=== PATIENT | male | born 1975 | race Caucasian/White ===

== ENCOUNTER 2020-04-18 17:01 | Emergency (ER) | payer OTHER ==
[2020-04-18 17:15] VITALS: BP 149/87; PULSE 109; O2SAT 95
== END 2020-04-18 17:19 | disposition left against medical advice (07) ==
LOC: ED 17:01
DX: R07.9 Chest pain, unspecified (principal)
CPT/HCPCS: 99283; G0463

== ENCOUNTER 2022-05-07 14:08 | Emergency (ER) | payer OTHER ==
[2022-05-07] MEDS ORDERED: Adacel Vial IM ONE ×2 (14:30→14:33)
[2022-05-07 14:31] VITALS: O2SAT 99
[2022-05-07] MEDS ORDERED: XYLOCAINE 2% HCL 20 ML MDV IJ ONE (14:31)
[2022-05-07] MEDS ORDERED: XYLOCAINE 2% HCL 20 ML MDV ONE (14:33)
--- NOTE | 2022-05-07 14:39 | ERPHSYRPT ---
- History of Present Illness Time Seen by Provider: 05/07/22 14:30 Source: patient Exam Limitations: no limitations Patient Subjective Stated Complaint: C/O lacerations to bottom of right foot that happened out in his yard just prior to arrival to ED. 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 Triage Nursing Assessment: Patient arrived in ED by ambulance. He is alert and oriented; very talkative. Patient having a hard time sitting still during assessment. No SOB noted. Right foot wrapped with gauze wrap upon arrival. Gauze removed and noted to have 2 small lacerations to the bottom of his foot. Physician History: Patient is a 47-year-old male presents to our ED via EMS for evaluation of a foot laceration. Patient states he was walking outdoors barefoot. 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 Injury occurred just prior to arrival. Tetanus not up-to-date. No active bleeding. Symptoms are mild to moderate in intensity. Patient declined pain medication. Pain worse with palpation. Pain improved with rest. Patient denies foreign body sensation in foot. Patient voices no other complaints or concerns at this time. Timing/Duration: today Severity: mild Modifying Factors: Improves With: nothing Associated Symptoms: denies symptoms Allergies/Adverse Reactions: No Known Drug Allergies Allergy (Verified 05/07/22 14:19) Home Medications: No Reportable Medications [No Reported Medications] 06/14/15 [History] Hx Tetanus, Diphtheria Vaccination/Date Given: No (NOT SURE) Hx Influenza Vaccination/Date Given: No Hx Pneumococcal Vaccination/Date Given: No Immunizations Up to Date: Yes Travel Risk - International Travel Have you traveled outside of the country in past 3 weeks: No - Coronavirus Screening Are you exhibiting any of the following symptoms?: No Close contact with a COVID-19 positive Pt in past 14-21 Days: No - Vaccine Status Have you recieved a Covid-19 vaccination: Yes 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 - Vaccination Dates Date of 2cond Vaccination (if applicable): NO - Review of Systems Constitutional: No Symptoms, No Fever, No Chills Eyes: No Symptoms Ears, Nose, & Throat: No Symptoms Respiratory: No Symptoms, No Cough, No Dyspnea Cardiac: No Symptoms, No Chest Pain, No Edema, No Syncope Abdominal/Gastrointestinal: No Symptoms, No Abdominal Pain, No Nausea, No Vomiting, No Diarrhea Genitourinary Symptoms: No Symptoms, No Dysuria Musculoskeletal: No Symptoms, No Back Pain, No Neck Pain Skin: No Symptoms, No Rash Neurological: No Symptoms, No Dizziness, No Focal Weakness, No Sensory Changes Psychological: No Symptoms Endocrine: No Symptoms Hematologic/Lymphatic: No Symptoms Immunological/Allergic: No Symptoms All Other Systems: Reviewed and Negative - Past Medical History Pertinent Past Medical History: No Neurological History: No Pertinent History ENT History: No Pertinent History Cardiac History: No Pertinent History Respiratory History: No Pertinent History Endocrine Medical History: No Pertinent History Musculoskeletal History: No Pertinent History GI Medical History: No Pertinent History History: No Pertinent History Psycho-Social History: No Pertinent History Male Reproductive Disorders: No Pertinent History Other Medical History: pt sleeping after medicine given in ER, unable to answer questions. - Past Surgical History Past Surgical History: No Neuro Surgical History: No Pertinent History Cardiac: No Pertinent History Respiratory: No Pertinent History Gastrointestinal: No Pertinent History Genitourinary: No Pertinent History Musculoskeletal: No Pertinent History Male Surgical History: No Pertinent History - Social History Smoking Status: Former smoker How long have you smoked: YRS Exposure to second hand smoke: Yes Drug Use: marijuana, methamphetamines, other Patient Lives Alone: No - Nursing Vital Signs Nursing Vital Signs: Initial Vital Signs Temperature 98.4 F 05/07/22 14:20 Pulse Rate 98 H 05/07/22 14:20 Respiratory Rate 19 05/07/22 14:20 Blood Pressure 160/116 05/07/22 14:20 O2 Sat by Pulse Oximetry 99 05/07/22 14:20 Pain Scale Pain Intensity 4 - Physical Exam General Appearance: no apparent distress, alert Eye Exam: PERRL/EOMI, eyes nml inspection Ears, Nose, Throat Exam: normal ENT inspection, TMs normal, pharynx normal, moist mucous membranes Neck Exam: normal inspection, non-tender, supple, full range of motion Respiratory Exam: normal breath sounds, lungs clear, airway intact, No respiratory distress Cardiovascular Exam: regular rate/rhythm, normal heart sounds, normal peripheral pulses Gastrointestinal/Abdomen Exam: soft, normal bowel sounds, No tenderness, No mass Back Exam: normal inspection, normal range of motion, No CVA tenderness, No vertebral tenderness Extremity Exam: normal inspection, normal range of motion, pelvis stable Neurologic Exam: alert, oriented x 3, cooperative, normal mood/affect, nml cerebellar function, nml station & gait, sensation nml, No motor deficits Skin Exam: normal color, warm, dry, No rash Lymphatic Exam: No adenopathy SpO2 Interpretation: normal SpO2: 99 O2 Delivery: Room Air - Course Nursing assessment & vital signs reviewed: Yes - Radiology Exams Foot X-ray Interpretation: Teleradiologist Report (Laceration lateral border right foot. No fracture dislocations.) Ordered Tests: Active Orders 24 hr Category Date Time Status FOOT (MINIMUM 3 VIEWS) Stat Exams 05/07/22 14:25 Completed Medication Summary Discontinued Medications Generic Name Dose Route Start Last Admin Trade Name Freq PRN Reason Stop Dose Admin Diphtheria/Tetanus/Acell Pertussis 0.5 ml 05/07/22 14:30 05/07/22 14:40 Tdap --Diph,Pertuss(Acell),Tet Vac/Pf 0.5 Ml Vial IM 05/07/22 14:31 0.5 ml .ONCE ONE Administration Diphtheria/Tetanus/Acell Pertussis Confirm 05/07/22 14:33 Tdap --Diph,Pertuss(Acell),Tet Vac/Pf 0.5 Ml Vial Administered 05/07/22 14:34 Dose 0.5 ml IM .STK-MED ONE Lidocaine HCl 5 ml 05/07/22 14:31 Lidocaine Hcl 2% 20 Ml Mdv IJ 05/07/22 14:32 STAT ONE Lidocaine HCl Confirm 05/07/22 14:33 Lidocaine Hcl 2% 20 Ml Mdv Administered 05/07/22 14:34 Dose 5 ml .ROUTE .STK-MED ONE - Progress Progress: improved Progress Note: Patient reassessed. Patient now stating that he feels he may have glass retained in his foot. We contacted Dr. Leigh of podiatry. Dr. Leigh will see patient now in his office. We will not close the wound at this time. Dr. Leigh will probe the wound for retained foreign body and manage the wound accordingly. Tetanus updated. Portions of this note were created with voice recognition technology. There may be grammatical, spelling, punctuation or sound alike errors 05/07/22 15:07 Counseled pt/family regarding: diagnosis, need for follow-up, rad results - Departure Departure Disposition: Home Clinical Impression: Foot laceration Condition: Stable Critical Care Time: No Referrals: TAMIKO CELESTE [NON-STAFF PHY W/O PRIVILEGES] - Follow up/PCP as directed Additional Instructions: Discharge/Care Plan [address] ANNABEL was seen on 05/07/22 in the Emergency Room. The patient was counseled regarding Diagnosis,Lab results, Imaging studies, need for follow up and when to return to the Emergency Room. Prescriptions given: Discharge Note I have spoken with the patient and/or caregivers. I have explained the patient's condition, diagnosis and treatment plan based on the information available to me at this time. I have answered the patient's and/or caregiver's questions and addressed any concerns. The patient and/or caregivers have as good understanding of the patient's diagnosis, condition and treatment plan as can be expected at this point. The vital signs have been stable. The patient's condition is stable and appropriate for discharge from the emergency department. The patient will pursue further outpatient evaluation with the primary care physician or other designated or consulting physician as outlined in the discharge instructions. The patient and/or caregivers are agreeable to this plan of care and follow-up instructions have been explained in detail. The patient and/or caregivers have received these instruction. The patient/and or caregivers are aware that any significant change in condition or worsening of symptoms should prompt an immediate return to this or the closest emergency department or call 911.
--- NOTE | 2022-05-07 14:47 | XRAY ---
Indication: Laceration laterally. Comparison: None 3 nonweightbearing views right foot demonstrates laceration lateral to 5th metatarsal. No other bony, articular, or soft tissue abnormalities.
[2022-05-07 15:11] VITALS: PULSE 89
[2022-05-07 15:15] VITALS: BP 130/84
== END 2022-05-07 15:15 | disposition home or self-care (01) ==
LOC: ED 14:08
DX: S91.311A Laceration without foreign body, right foot, initial encounter (principal); W22.8XXA Striking against or struck by other objects, initial encounter; W25.XXXA Contact with sharp glass, initial encounter
CPT/HCPCS: 73630; 90471; 90715; 96372; 99283

== ENCOUNTER 2022-07-10 22:47 | Emergency (ER) | payer OTHER ==
[2022-07-10 22:59] VITALS: O2SAT 95
[2022-07-10] MEDS ORDERED: TORAdol 30 mg Injection IV ONE (23:00)
[2022-07-10] MEDS ORDERED: Sodium Chloride 0.9% 1000 ML 1,000 ML IV STA (23:02)
[2022-07-10] MEDS ORDERED: TORAdol 30 mg Injection ONE (23:03)
[2022-07-10] MEDS ORDERED: Sodium Chloride 0.9% 1000 ML 1,000 ML ONE (23:03)
[2022-07-10 23:11] LABS: Appearance TURBID (CLEAR); Bilirubin MODERATE (NEGATIVE); Dipstick done @ ? MAIN LAB; Glucose NEGATIVE (NEGATIVE); Ketones TRACE (NEGATIVE); Nitrite NEGATIVE (NEGATIVE); Ph 5.5 (5-6); Protein,Urine Dip >=300 (Negative); RBC LARGE Ery/ul (0-5); Specific Gravity >=1.030 (1.005-1.025); Urobilinogen 1 mg/dL (0-1)
[2022-07-10 23:13] LABS: Absolute Neutrophil Ct (ANC) 5.68 x10^3/uL (1.4-6.9); Basophil (Absolute #) 0.12 x10^3/uL (0-0.4); Eosinophil (Absolute #) 0.19 x10^3/uL (0-0.5); Hematocrit 44.2 % (42-50); Hemoglobin 14.7 g/dL (12.5-18.0); Lymphocyte (Absolute #) 2.95 x10^3/uL (1.0-4.6); Lymphocytes % 30.3 % (24.0-44.0); Mean Cell Volume 99.1 fL (78-100); Mean Corpuscular Hgb Concent. 33.3 g/dL (32-36); Mean Platelet Volume 10.1 fL (7.5-11.0); Monocyte (Absolute #) 0.75 x10^3/uL (0.0-1.3); Monocytes % 7.7 % (0.0-12.0); Neutrophil % 58.5 % (36.0-66.0); Platelet Count 195 x10^3/uL (150-450); Red Blood Count 4.46 x10^6/uL (4.1-5.6); Red Cell Distribution Width 12.8 % (11.5-14.0); White Blood Count 9.7 x10^3/uL (4.0-10.5)
--- NOTE | 2022-07-10 23:13 | ERPHSYRPT ---
- History of Present Illness Historian: patient Exam Limitations: no limitations Patient Subjective Stated Complaint: pt states he has been having pain for 2 hours that started in l side of low abdomen, states it hurts when he urinates. pt states no history of stones. rates pain 10/10 Triage Nursing Assessment: pt is alert nd oriented, walked to room holding abdomen, urine is dark red and has no sedement. pt states he felt a bit better after urinating. refuses to sit in bed due to pain in l abdomen that is reffered to back and side. Physician History: 47 yo wm w L CVA pain w radiation to LLQ x2 hrs. Pain is 10 on scale and described as pressure. He has nausea/hematuria wo dysuria/frequency/fever. Timing/Duration: other (2 hours) Activities at Onset: rest Quality: pressure Abdominal Pain Onset Location: other (L CVA w radiation to LLQ) Pain Radiation: LLQ Severity of Pain-Max: severe Severity of Pain-Current: severe Modifying Factors: Improves With: nothing Associated Symptoms: denies symptoms, back Previous symptoms: no prior history Allergies/Adverse Reactions: No Known Drug Allergies Allergy (Verified 05/07/22 14:19) Home Medications: No Reportable Medications [No Reported Medications] 06/14/15 [History] Hx Tetanus, Diphtheria Vaccination/Date Given: No (NOT SURE) Hx Influenza Vaccination/Date Given: No Hx Pneumococcal Vaccination/Date Given: No Travel Risk - International Travel Have you traveled outside of the country in past 3 weeks: No - Coronavirus Screening Are you exhibiting any of the following symptoms?: No Close contact with a COVID-19 positive Pt in past 14-21 Days: No - Vaccine Status Have you recieved a Covid-19 vaccination: Yes 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 - Vaccination Dates Date of 2cond Vaccination (if applicable): unknown - Review of Systems Constitutional: No Symptoms Eyes: No Symptoms Ears, Nose, & Throat: No Symptoms Respiratory: No Symptoms Cardiac: No Symptoms Abdominal/Gastrointestinal: No Symptoms Genitourinary Symptoms: No Symptoms, Hematuria, Flank Pain Musculoskeletal: No Symptoms Skin: No Symptoms Neurological: No Symptoms Psychological: No Symptoms Endocrine: No Symptoms Hematologic/Lymphatic: No Symptoms Immunological/Allergic: No Symptoms - Past Medical History Pertinent Past Medical History: No Neurological History: No Pertinent History ENT History: No Pertinent History Cardiac History: No Pertinent History Respiratory History: No Pertinent History Endocrine Medical History: No Pertinent History Musculoskeletal History: No Pertinent History GI Medical History: No Pertinent History History: No Pertinent History Psycho-Social History: No Pertinent History Male Reproductive Disorders: No Pertinent History Other Medical History: pt sleeping after medicine given in ER, unable to answer questions. - Past Surgical History Past Surgical History: No Neuro Surgical History: No Pertinent History Cardiac: No Pertinent History Respiratory: No Pertinent History Gastrointestinal: No Pertinent History Genitourinary: No Pertinent History Musculoskeletal: No Pertinent History Male Surgical History: No Pertinent History - Social History Smoking Status: Former smoker How long have you smoked: YRS Exposure to second hand smoke: Yes Drug Use: bath salts, other Patient Lives Alone: No Significant Family History: no pertinent family hx - Nursing Vital Signs Nursing Vital Signs: Initial Vital Signs Temperature 98.7 F 07/10/22 22:50 Pulse Rate 81 07/10/22 22:50 Respiratory Rate 18 07/10/22 22:50 Blood Pressure 147/96 07/10/22 22:50 O2 Sat by Pulse Oximetry 95 07/10/22 22:50 Pain Scale Pain Intensity 4 Hypertensive - Physical Exam General Appearance: no apparent distress (In pain) Eye Exam: PERRL/EOMI, eyes nml inspection Ears, Nose, Throat Exam: normal ENT inspection, TMs normal, pharynx normal, moist mucous membranes Neck Exam: normal inspection, non-tender, supple, full range of motion, No meningismus, No mass, No Brudzinski, No Kernig's, No carotid bruit Respiratory Exam: normal breath sounds, lungs clear, airway intact, No respiratory distress Cardiovascular Exam: regular rate/rhythm, normal heart sounds, normal peripheral pulses, capillary refill <2 sec, No murmur Gastrointestinal/Abdomen Exam: soft, normal bowel sounds, No tenderness Back Exam: normal inspection, normal range of motion, CVA tenderness (Mild L CVA ttp) Extremity Exam: normal inspection, normal range of motion Neurologic Exam: alert, oriented x 3, cooperative, substation 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, normal mood/affect, nml cerebellar function, nml station & gait, sensation nml, No motor deficits, No sensory deficit Skin Exam: normal color, warm, dry, No rash Lymphatic Exam: No adenopathy SpO2 Interpretation: normal SpO2: 95 O2 Delivery: Room Air - Course Nursing assessment & vital signs reviewed: Yes - CT Exams Abdomen/Pelvis CT Interpretation: Tele-radiologist Report (2mm L distal ureteral stone) Ordered Tests: Medication Summary Discontinued Medications Generic Name Dose Route Start Last Admin Trade Name Nemo PRN Reason Stop Dose Admin Hydrocodone Bitart/Acetaminophen 2 tab 07/11/22 01:37 07/11/22 01:41 Hydrocodone/Apap 5/325 Mg Tablet PO 07/11/22 01:38 2 tab SENT HOME W/ PATIENT ONE Administration Hydrocodone Bitart/Acetaminophen Confirm 07/11/22 01:41 Hydrocodone/Apap 5/325 Mg Tablet Administered 07/11/22 01:42 Dose 2 tab .ROUTE .STK-MED ONE Sodium Chloride 1,000 mls @ 999 mls/hr 07/10/22 23:02 07/10/22 23:05 Sodium Chloride 0.9% 1000 Ml IV 07/11/22 00:02 999 mls/hr .Q1H1M STA Administration Sodium Chloride Confirm 07/10/22 23:03 Sodium Chloride 0.9% 1000 Ml Administered 07/10/22 23:04 Dose 1,000 mls @ ud .ROUTE .STK-MED ONE Ketorolac Tromethamine 15 mg 07/10/22 23:00 07/10/22 23:05 Ketorolac Tromethamine 30 Mg/Ml Inj IV 07/10/22 23:01 15 mg STAT ONE Administration Ketorolac Tromethamine Confirm 07/10/22 23:03 Ketorolac Tromethamine 30 Mg/Ml Inj Administered 07/10/22 23:04 Dose 30 mg .ROUTE .STK-MED ONE Ketorolac Tromethamine 15 mg 07/11/22 01:04 07/11/22 01:16 Ketorolac Tromethamine 30 Mg/Ml Inj IV 07/11/22 01:05 15 mg STAT ONE Administration Ketorolac Tromethamine Confirm 07/11/22 01:12 Ketorolac Tromethamine 30 Mg/Ml Inj Administered 07/11/22 01:13 Dose 30 mg .ROUTE .STK-MED ONE Lab/Rad Data: Laboratory Result Diagrams 07/10/22 23:10 07/10/22 23:10 Laboratory Results 07/10/22 07/10/22 07/10/22 Range/Units 23:10 23:10 23:01 WBC 9.7 (4.0-10.5) x10^3/uL RBC 4.46 (4.1-5.6) x10^6/uL Hgb 14.7 (12.5-18.0) g/dL Hct 44.2 (42-50) % MCV 99.1 (78-100) fL MCH 33.0 H (26-32) pg MCHC 33.3 (32-36) g/dL RDW 12.8 (11.5-14.0) % Plt Count 195 (150-450) x10^3/uL MPV 10.1 (7.5-11.0) fL Gran % 58.5 (36.0-66.0) % Immature Gran % (Auto) 0.3 (0.00-0.4) % Nucleat RBC Rel Count 0.0 (0.00-0.1) % Eos # (Auto) 0.19 (0-0.5) x10^3/uL Immature Gran # (Auto) 0.03 (0.00-0.03) x10^3u/L Absolute Lymphs (auto) 2.95 (1.0-4.6) x10^3/uL Absolute Monos (auto) 0.75 (0.0-1.3) x10^3/uL Absolute Nucleated RBC 0.00 (0.00-0.01) x10^3u/L Lymphocytes % 30.3 (24.0-44.0) % Monocytes % 7.7 (0.0-12.0) % Eosinophils % 2.0 (0.00-5.0) % Basophils % 1.2 (0.0-0.4) % Absolute Granulocytes 5.68 (1.4-6.9) x10^3/uL Basophils # 0.12 (0-0.4) x10^3/uL Sodium 139 (137-145) mmol/L Potassium 4.4 (3.5-5.1) mmol/L Chloride 105 (98-107) mmol/L Carbon Dioxide 25 (22-30) mmol/L Anion Gap 13.5 (5-15) MEQ/L BUN 25 H (9-20) mg/dL Creatinine 0.98 (0.66-1.25) mg/dL Estimated GFR > 60.0 ML/MIN Glucose 157 H (74-106) mg/dL Calcium 9.3 (8.4-10.2) mg/dL Total Bilirubin 0.70 (0.2-1.3) mg/dL AST 245 H (17-59) U/L ALT 166 H (0-50) U/L Alkaline Phosphatase 135 H (38-126) U/L Serum Total Protein 7.4 (6.3-8.2) g/dL Albumin 4.3 (3.5-5.0) g/dL Urinalys Dipstick Clnc Urine Color (YELLOW) Urine Appearance (CLEAR) Urine pH (5-6) Ur Specific [place] (1.005-1.025) POC Urine Protein Conf (Negative) Urine Ketones (NEGATIVE) Urine Nitrite (NEGATIVE) Urine Bilirubin (NEGATIVE) Urine Urobilinogen (0-1) mg/dL Urine Leukocytes (NEGATIVE) Urine WBC (Auto) (0-5) /HPF Urine RBC (Auto) (0-2) /HPF U Epithel Cells (Auto) (FEW) /HPF Urine Bacteria (Auto) (NEGATIVE) /HPF Urine RBC (0-5) Howie/ul Urine Mucus (Auto) (NEGATIVE) /HPF Ur Culture Indicated? Urine Glucose (NEGATIVE) mg/dL Urine Opiates Level NEGATIVE (NEGATIVE) Ur Methadone NEGATIVE (NEGATIVE) Urine Barbiturates NEGATIVE (NEGATIVE) Ur Phencyclidine (PCP) NEGATIVE (NEGATIVE) Urine Amphetamine NEGATIVE (NEGATIVE) U Benzodiazepine Level NEGATIVE (NEGATIVE) Urine Cocaine NEGATIVE (NEGATIVE) Urine Marijuana (THC) POSITIVE (NEGATIVE) 07/10/22 Range/Units 22:57 WBC (4.0-10.5) x10^3/uL RBC (4.1-5.6) x10^6/uL Hgb (12.5-18.0) g/dL Hct (42-50) % MCV (78-100) fL MCH (26-32) pg MCHC (32-36) g/dL RDW (11.5-14.0) % Plt Count (150-450) x10^3/uL MPV (7.5-11.0) fL Gran % (36.0-66.0) % Immature Gran % (Auto) (0.00-0.4) % Nucleat RBC Rel Count (0.00-0.1) % Eos # (Auto) (0-0.5) x10^3/uL Immature Gran # (Auto) (0.00-0.03) x10^3u/L Absolute Lymphs (auto) (1.0-4.6) x10^3/uL Absolute Monos (auto) (0.0-1.3) x10^3/uL Absolute Nucleated RBC (0.00-0.01) x10^3u/L Lymphocytes % (24.0-44.0) % Monocytes % (0.0-12.0) % Eosinophils % (0.00-5.0) % Basophils % (0.0-0.4) % Absolute Granulocytes (1.4-6.9) x10^3/uL Basophils # (0-0.4) x10^3/uL Sodium (137-145) mmol/L Potassium (3.5-5.1) mmol/L Chloride (98-107) mmol/L Carbon Dioxide (22-30) mmol/L Anion Gap (5-15) MEQ/L BUN (9-20) mg/dL Creatinine (0.66-1.25) mg/dL Estimated GFR ML/MIN Glucose (74-106) mg/dL Calcium (8.4-10.2) mg/dL Total Bilirubin (0.2-1.3) mg/dL AST (17-59) U/L ALT (0-50) U/L Alkaline Phosphatase (38-126) U/L Serum Total Protein (6.3-8.2) g/dL Albumin (3.5-5.0) g/dL Urinalys Dipstick Clnc MAIN LAB Urine Color BROWN (YELLOW) Urine Appearance TURBID (CLEAR) Urine pH 5.5 (5-6) Ur Specific [place] >=1.030 (1.005-1.025) POC Urine Protein Conf >=300 (Negative) Urine Ketones TRACE (NEGATIVE) Urine Nitrite NEGATIVE (NEGATIVE) Urine Bilirubin MODERATE (NEGATIVE) Urine Urobilinogen 1 (0-1) mg/dL Urine Leukocytes NEGATIVE (NEGATIVE) Urine WBC (Auto) 0-2 (0-5) /HPF Urine RBC (Auto) >101 (0-2) /HPF U Epithel Cells (Auto) NONE (FEW) /HPF Urine Bacteria (Auto) RARE (NEGATIVE) /HPF Urine RBC LARGE (0-5) Howie/ul Urine Mucus (Auto) SLIGHT (NEGATIVE) /HPF Ur Culture Indicated? 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
[2022-07-10 23:14] LABS: Bacteria RARE /HPF (NEGATIVE); Mucus SLIGHT /HPF (NEGATIVE); WBC 0-2 /HPF (0-5)
[2022-07-10 23:16] LABS: RBC >101 /HPF (0-2); Urine Cultured Indicated? YES
[2022-07-10 23:28] LABS: Amphetamine,Urine NEGATIVE (NEGATIVE); Barbiturate,Urine NEGATIVE (NEGATIVE); Benzodiazepine,Urine NEGATIVE (NEGATIVE); Cocaine,Urine NEGATIVE (NEGATIVE); Methadone,Urine NEGATIVE (NEGATIVE); Opiate,Urine NEGATIVE (NEGATIVE); PCP,Urine NEGATIVE (NEGATIVE); THC,Urine POSITIVE (NEGATIVE)
[2022-07-10 23:30] LABS: ALBUMIN 4.3 g/dL (3.5-5.0); ALKALINE PHOSPHATASE 135 U/L (38-126); ANION GAP 13.5 MEQ/L (5-15); BLOOD UREA NITROGEN 25 mg/dL (9-20); CHLORIDE 105 mmol/L (98-107); Calcium 9.3 mg/dL (8.4-10.2); Carbon Dioxide 25 mmol/L (22-30); Creatinine 1 0.98 mg/dL (0.66-1.25); EST GLOMERULAR FILTRATION RATE > 60.0 ML/MIN; Glucose 157 mg/dL (74-106); Potassium 4.4 mmol/L (3.5-5.1); SGOT/AST 245 U/L (17-59); SGPT/ALT 166 U/L (0-50); SODIUM 139 mmol/L (137-145); Total Protein 7.4 g/dL (6.3-8.2)
[2022-07-11] MEDS ORDERED: TORAdol 30 mg Injection IV ONE (01:04)
[2022-07-11] MEDS ORDERED: TORAdol 30 mg Injection ONE (01:12)
[2022-07-11 01:34] VITALS: BP 129/77; PULSE 77
[2022-07-11] MEDS ORDERED: NORCO 5/325 MG PO ONE (01:37)
[2022-07-11] MEDS ORDERED: NORCO 5/325 MG ONE (01:41)
--- NOTE | 2022-07-11 07:22 | XRAY ---
Indication: Hematuria. Left sided pain. Multiple contiguous axial images obtained through the abdomen and pelvis without contrast. Comparison: None Lung bases demonstrates minimal dependent atelectasis. Heart is not enlarged. Stomach is distended with food/fluid. Noncontrasted stomach and bowel loops appear nonobstructed. Appendix not visualized. Mild diffuse scattered colonic fecal debris throughout. Contracted gallbladder without gallstones. No free fluid/air. There is a 2-3 mm left UVJ calculus. Proximal left ureter is minimally prominent along with minimal hydronephrosis favoring partial obstructive uropathy. Additional left renal punctate calculus. Remaining liver, gallbladder, pancreas, spleen, adrenal glands, kidneys, ureters, and bladder are unremarkable for noncontrast exam. Very minimal aortoiliac calcifications without AAA. Osseous structures intact. Impression: 1. 2-3 mm distal left UVJ calculus producing partial obstruction. Additional left renal punctate calculus. 2. Incidental mild diffuse fecal stasis. Comment: Preliminary interpretation made by [facility]. No critical discrepancy.
== END 2022-07-11 01:49 | disposition home or self-care (01) ==
LOC: ED 22:47
DX: N20.1 Calculus of ureter (principal); R74.01 Elevation of levels of liver transaminase levels
CPT/HCPCS: 36000; 36415; 74176; 80053; 80307; 81015; 85025; 87086; 96374; 96376; 99284; J1885; A9270-GY

== ENCOUNTER 2023-10-30 18:27 | Emergency (ER) | payer OTHER ==
--- NOTE | 2023-10-30 18:38 | ERPHSYRPT ---
- History of Present Illness Time Seen by Provider: 10/30/23 18:38 Source: patient, family Exam Limitations: no limitations Physician History: pt has hx back pain after lifting 2 days ago and saw chiro with little relief - some left radicular symptoms. No neuro findings. NO motor weakness. no bowel or bladder symptoms, no hx cancer. no trauma. no spine tenderness. No abd pain or tenderness or mass. No urinary syptoms. No prior procedures and denies IV drug use recently ( last was in 2018), but is on subaxone for prior narc dependency. No fever. NO spinal injections. Discussed risks/benefits of outpt Tx as opposed to further studies in ER / Hosp and he prefers nonnarc Tx, steroids, and muscle relax and f/u PMD. Pt is advised that additional pathology could still be evolving undetected of a serious nature, and followup is important with furhter w/u to detect this and to return meantime if numbness weakness, bowel or bladder symptoms, fever or other concerns - he has the capacity to make this choice for outpt tx rather than further eval in ER today. Timing/Duration: day(s) Method of Injury: bending, lifting Quality: burning, dull, radiating, sharp Back Pain Location: lumbar spine Severity of Pain-Max: moderate Severity of Pain-Current: moderate Modifying Factors: Improves With: immobilization, movement Associated Symptoms: denies symptoms, other (left rad symptoms), No urinary incontinence, No loss of bowel control, No constipation, No problems urinating Previous symptoms: no prior history, recently seen, recently treated Allergies/Adverse Reactions: No Known Drug Allergies Allergy (Verified 10/30/23 18:36) Home Medications: Buprenorphine HCl/Naloxone HCl [Buprenorphine-Nalox 8-2 mg Tab] 1 ea DAILY 10/30/23 [History] Hx Tetanus, Diphtheria Vaccination/Date Given: No (NOT SURE) Hx Influenza Vaccination/Date Given: No Hx Pneumococcal Vaccination/Date Given: No Travel Risk - Vaccine Status Have you recieved a Covid-19 vaccination: Yes Side Boss: Moderna - Vaccination Dates Date of 2cond Vaccination (if applicable): unknown - Review of Systems Constitutional: No Fever, No Chills Eyes: No Symptoms Ears, Nose, & Throat: No Symptoms Respiratory: No Cough, No Dyspnea Cardiac: No Chest Pain, No Edema, No Syncope Abdominal/Gastrointestinal: No Abdominal Pain, No Nausea, No Vomiting, No Diarrhea Genitourinary Symptoms: No Dysuria Musculoskeletal: Back Pain, No Neck Pain Skin: No Rash Neurological: No Dizziness, No Focal Weakness, No Sensory Changes Psychological: No Symptoms Endocrine: No Symptoms Hematologic/Lymphatic: No Symptoms Immunological/Allergic: No Symptoms All Other Systems: Reviewed and Negative - Past Medical History Pertinent Past Medical History: No Neurological History: No Pertinent History ENT History: No Pertinent History Cardiac History: No Pertinent History Respiratory History: No Pertinent History Endocrine Medical History: No Pertinent History Musculoskeletal History: No Pertinent History GI Medical History: No Pertinent History History: No Pertinent History Psycho-Social History: No Pertinent History Male Reproductive Disorders: No Pertinent History Other Medical History: pt sleeping after medicine given in ER, unable to answer questions. - Past Surgical History Past Surgical History: No Neuro Surgical History: No Pertinent History Cardiac: No Pertinent History Respiratory: No Pertinent History Gastrointestinal: No Pertinent History Genitourinary: No Pertinent History Musculoskeletal: No Pertinent History Male Surgical History: No Pertinent History - Social History Smoking Status: Former smoker How long have you smoked: YRS Exposure to second hand smoke: Yes Drug Use: bath salts, other Patient Lives Alone: No Significant Family History: no pertinent family hx - Nursing Vital Signs Nursing Vital Signs: Initial Vital Signs Temperature 97.5 F 10/30/23 18:38 Pulse Rate 107 H 10/30/23 18:38 Respiratory Rate 16 10/30/23 18:38 Blood Pressure 164/105 10/30/23 18:38 O2 Sat by Pulse Oximetry 97 10/30/23 18:38 Pain Scale Pain Intensity [Back] 10 Pain Intensity 10 - Physical Exam General Appearance: no apparent distress, alert Eye Exam: PERRL/EOMI, eyes nml inspection Neck Exam: normal inspection, non-tender, supple, full range of motion, No meningismus, No midline tenderness Respiratory Exam: normal breath sounds, lungs clear, No respiratory distress Cardiovascular Exam: regular rate/rhythm, normal heart sounds Gastrointestinal Exam: soft, No tenderness, No mass Rectal Exam: deferred Back Exam: decreased range of motion, muscle spasm (left), No CVA tenderness, No vertebral tenderness, No point tenderness Extremity Exam: normal inspection, normal range of motion, No calf tenderness, No pedal edema Peripheral Pulses: carotid (R): 2+, carotid (L): 2+, femoral (R): 2+, femoral (L): 2+, dorsalis-pedis (R): 2+, dorsalis-pedis (L): 2+ Neurologic Exam: alert, oriented x 3, cooperative, 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 Counseled pt/family regarding: diagnosis, need for follow-up Medical Desision Making - Discussion of managment Reviewed:: Test results, Need for additional workup Agreed on:: Treatment plan, need for follow-up - Diagnostic Testing Diagnostic test were ordered, analyzed, and reviewed by me: No - Risk of complications The pt has a mod risk of morbidity or mortality based on: Need for prescription drug management The pt has a high risk of morbidity or mortality based on: Decision regarding hospitilization or escalation of hosp level of care - Departure Departure Disposition: Home Clinical Impression: Back pain with radiculopathy Condition: Good Critical Care Time: No Referrals: ALO CANO FNP [Primary Care Provider] - Follow up/PCP as directed Instructions: Low Back Pain (DC), Sciatica (DC), Degenerative Disc Disease (DC) Additional Instructions: although the symptoms fit a lumbar disc, there could be other serious conditions undetected causing symptoms as well so follow-up with your DrAdrian is important this week. THere could also be progression of the disc condition with more serious nerve damage so return if weakness, increased numbness, bowel or blader symptoms, fever, vomiting, stomach pain or any other concerns. Also see your DrAdrian for your blood pressure which was elevated some at this visit. Prescriptions: Cyclobenzaprine HCl 10 mg [Cyclobenzaprine 10 MG] 10 mg PO Q8H PRN PRN #14 tablet PRN Reason: Pain Methylprednisolone Packet [Medrol Dosepack] 4 mg PO UD #30 packet
[2023-10-30 18:39] VITALS: BP 164/105; PULSE 107; RESP 16; TEMP 97.5; O2SAT 97
[2023-10-30] MEDS ORDERED: DELTASONE 20 MG PO ONE (19:16)
[2023-10-30] MEDS ORDERED: TORAdol 30 mg Injection IM ONE (19:16)
[2023-10-30] MEDS ORDERED: Cyclobenzaprine 10 MG PO ONE (19:17)
[2023-10-30] MEDS ORDERED: Cyclobenzaprine 10 MG ONE (19:20)
[2023-10-30] MEDS ORDERED: DELTASONE 20 MG ONE (19:20)
[2023-10-30] MEDS ORDERED: TORAdol 30 mg Injection ONE (19:20)
== END 2023-10-30 19:52 | disposition home or self-care (01) ==
LOC: ED 18:27
DX: M54.16 Radiculopathy, lumbar region (principal); M54.50 Low back pain, unspecified; Z79.891 Long term (current) use of opiate analgesic; Z79.52 Long term (current) use of systemic steroids
CPT/HCPCS: 96372; 99283; J1885; A9270-GY